=== PATIENT | female | born 1940 | race Caucasian/White ===

== ENCOUNTER → 2020-01-22 08:56 | Day surgery (SDC) | payer MEDICARE, OTHER, SELFPAY ==
[2020-01-22] MEDS: denosumab 60 mg SDV SUBCUT (09:40)
[2020-01-22 09:44] VITALS: BP 123/65; PULSE 62; RESP 18; TEMP 37.1; O2SAT 100
== END ==
PROVIDERS: Family Provider Family Medicine; PCP Family Medicine; Visit Provider Family Medicine
DX: M81.0 Age-related osteoporosis without current pathological fracture (principal)
CPT/HCPCS: 96372; J0897

== ENCOUNTER 2020-01-29 12:59 | Outpatient (CLI) | payer MEDICARE, OTHER, SELFPAY ==
--- NOTE | 2020-01-29 13:04 | MM_ITS ---
WS: [id number] Bilateral screening digital mammogram, 01/29/2020 Clinical Data: SCREENING Comparison: 04/22/2018, 03/25/2017, 02/27/2015, 03/15/2013, 01/19/2011, 03/28/2007. Findings: The breast parenchymal pattern shows fibroglandular tissue. No spiculated masses or clustered calcifi cations are seen. There are no secondary signs of carcinoma. MM/[place] [id number] Impression: 1. Negative bilateral mammogram unchanged. 2. Recommend annual screening mammograms. BIRADS: 1-Negative FOLLOW UP: 1 Year Follow-up The CAD toolroom checker was used.
== END 2020-01-29 13:00 | disposition home or self-care (01) ==
LOC: RADSHAW 13:00
PROVIDERS: Family Provider Family Medicine; PCP Family Medicine; Visit Provider Family Medicine
DX: Z12.31 Encounter for screening mammogram for malignant neoplasm of breast (principal)
CPT/HCPCS: 77067

== ENCOUNTER → 2020-07-24 10:23 | Day surgery (SDC) | payer MEDICARE, OTHER, SELFPAY ==
[2020-07-24 10:40] VITALS: BMI 19.5
[2020-07-24 10:43] VITALS: BP 118/62; PULSE 57; RESP 18; TEMP 36.7; O2SAT 98
[2020-07-24 11:17] LABS: Calcium 9.3 mg/dL (8.5-10.5)
[2020-07-24] MEDS: denosumab 60 mg SDV SUBCUT (11:25)
== END ==
PROVIDERS: PCP Family Medicine; Visit Provider Family Medicine
DX: M81.0 Age-related osteoporosis without current pathological fracture (principal)
CPT/HCPCS: 36415; 82310; 96372; J0897

== ENCOUNTER → 2021-01-23 10:21 | Day surgery (SDC) | payer MEDICARE, OTHER, SELFPAY ==
[2021-01-23 10:49] VITALS: BP 115/58; PULSE 55; RESP 18; TEMP 36.8; O2SAT 99; BMI 20.2
[2021-01-23] MEDS: denosumab 60 mg SDV SUBCUT (11:33)
== END ==
PROVIDERS: PCP Family Medicine; Visit Provider Family Medicine
DX: M81.0 Age-related osteoporosis without current pathological fracture (principal)
CPT/HCPCS: 36415; 82310; 96372; J0897

== ENCOUNTER → 2021-07-25 09:55 | Day surgery (SDC) | payer MEDICARE, OTHER, SELFPAY ==
[2021-07-25 10:16] VITALS: BMI 19.5
[2021-07-25 10:23] VITALS: BP 123/57; PULSE 60; RESP 15; TEMP 37.1; O2SAT 100
[2021-07-25 11:17] LABS: Calcium 8.5 mg/dL (8.5-10.5)
[2021-07-25] MEDS: denosumab 60 mg SDV SUBCUT (11:21)
== END ==
PROVIDERS: PCP Family Medicine; Visit Provider Family Medicine
DX: M81.0 Age-related osteoporosis without current pathological fracture (principal)
CPT/HCPCS: 36415; 82310; 96372; J0897

== ENCOUNTER 2022-02-09 09:47 | Outpatient (CLI) | payer MEDICARE, OTHER, SELFPAY ==
--- NOTE | 2022-02-09 10:06 | XR_ITS ---
WS: [id number] DEXA (DUAL ENERGY X-RAY ABSORPTIOMETRY) Bone mineral density was performed using a [employer] machine. HISTORY: AGE RELATED OSTEOPOROSIS W/O CURRENT PATHOLOGICAL FX COMPARISON: 06/15/2019 Lumbar spine BMD (L1-L4): 1.103 g/cm2 T score: -0.6 Z score: 1.9 Total hip BMD: Left: 0.608 g/cm2. T score: -3.2 Z score: -0.6 Right: 0.622 g/cm2. T score: -3.1 Z score: -0.4 10 year probability of a major osteoporotic fracture is 54%. Compared to the prior study from 06/15/2019. Lumbar spine bone mineral density has increased by 6.6%. Bilateral hips bone mineral density has decreased by 2.7%. XR/XR DEXA axial skeleton* [id number] IMPRESSION: OSTEOPOROSIS based upon the WHO classification for females. Significant decreas e in bone mineral density within the hips since the prior study. Bone mineral d ensity within the lumbar spine is probably falsely elevated due to the increasi ng sclerosis in the vertebral bodies.
== END 2022-02-09 09:48 | disposition home or self-care (01) ==
LOC: RAD 09:50
PROVIDERS: PCP Family Medicine; Visit Provider Family Medicine
DX: M81.0 Age-related osteoporosis without current pathological fracture (principal)
CPT/HCPCS: 77080

== ENCOUNTER → 2022-02-12 09:25 | Day surgery (SDC) | payer MEDICARE, OTHER, SELFPAY ==
[2022-02-12 10:05] VITALS: BP 123/52; PULSE 61; RESP 18; TEMP 36.4; O2SAT 99
[2022-02-12 10:30] LABS: Calcium 9.2 mg/dL (8.5-10.5)
[2022-02-12] MEDS: denosumab 60 mg SDV SUBCUT (10:31)
--- NOTE | 2022-02-12 10:36 | PC.NURSE ---
Pt to GI lab for Prolia injection. Calcium level drawn prior to injection and noted at 9.2. Injection given as ordered.
== END ==
PROVIDERS: PCP Family Medicine; Visit Provider Family Medicine
DX: M81.0 Age-related osteoporosis without current pathological fracture (principal)
CPT/HCPCS: 36415; 82310; 96372; J0897

== ENCOUNTER → 2022-03-12 08:58 | Outpatient (BNVA) | payer MEDICARE, OTHER, SELFPAY | PROVIDERS: PCP Family Medicine; Referring Provider Family Medicine; Visit Provider Internal Medicine | DX: M81.0 Age-related osteoporosis without current pathological fracture (principal); E07.9 Disorder of thyroid, unspecified | CPT/HCPCS: 99204 ==

== ENCOUNTER 2022-03-17 11:03 | Outpatient (CLI) | payer MEDICARE, OTHER, SELFPAY ==
--- NOTE | 2022-03-17 11:13 | MM_ITS ---
WS: [email or web address] BILATERAL SCREENING TOMOSYNTHESIS DIGITAL MAMMOGRAM WITH CAD HISTORY: SCREENING COMPARISON: 01/29/2020, 04/22/2018 Bilateral CC and MLO views submitted. Computer aided detection analyzed. Breast composition: There are scattered areas of fibroglandular density. No suspicious masses, microc alcifications or architectural distortion. Benign calcifications in each breast. More extensive vascu lar calcifications in the RIGHT breast. MM/[place] [id number] IMPRESSION: BI-RADS: 2-Benign FOLLOW UP: 1 Year Follow-up
== END 2022-03-17 11:04 | disposition home or self-care (01) ==
LOC: RADSHAW 11:11
PROVIDERS: PCP Family Medicine; Visit Provider Family Medicine
DX: Z12.31 Encounter for screening mammogram for malignant neoplasm of breast (principal)
CPT/HCPCS: 77063; 77067

== ENCOUNTER → 2022-06-01 10:29 | Outpatient (BNVA) | payer MEDICARE, OTHER, SELFPAY | PROVIDERS: PCP Family Medicine; Visit Provider Podiatrist Foot & Ankle Surgery | DX: M72.2 Plantar fascial fibromatosis (principal); M79.671 Pain in right foot; M79.672 Pain in left foot; M21.40 Flat foot [pes planus] (acquired), unspecified foot | CPT/HCPCS: 73630; 99214 ==

== ENCOUNTER → 2022-07-06 09:01 | Outpatient (BNVA) | payer MEDICARE, OTHER, SELFPAY | PROVIDERS: PCP Family Medicine; Visit Provider Podiatrist Foot & Ankle Surgery | DX: M72.2 Plantar fascial fibromatosis (principal); M21.40 Flat foot [pes planus] (acquired), unspecified foot; M76.829 Posterior tibial tendinitis, unspecified leg | CPT/HCPCS: 99213 ==

== ENCOUNTER → 2022-08-21 10:17 | Day surgery (SDC) | payer MEDICARE, OTHER, SELFPAY ==
[2022-08-21 10:55] VITALS: BP 132/62; PULSE 53; RESP 18; TEMP 36.2; O2SAT 98
[2022-08-21] MEDS: denosumab 60 mg SDV SUBCUT (11:06)
== END ==
PROVIDERS: PCP Family Medicine; Visit Provider Family Medicine
DX: M81.0 Age-related osteoporosis without current pathological fracture (principal)
CPT/HCPCS: 36415; 82310; 96372; J0897

== ENCOUNTER → 2023-01-12 10:53 | Day surgery (SDC) | payer MEDICARE, OTHER, SELFPAY ==
[2023-01-12 11:23] VITALS: BP 114/54; PULSE 64; RESP 18; TEMP 36.3; O2SAT 97
[2023-01-12 11:41] LABS: Calcium 9.1 mg/dL (8.5-10.5)
[2023-01-12] MEDS: denosumab 60 mg SDV SUBCUT (11:43)
== END ==
PROVIDERS: PCP Family Medicine; Visit Provider Family Medicine
DX: M81.0 Age-related osteoporosis without current pathological fracture (principal)
CPT/HCPCS: 36415; 82310; 96372; J0897

== ENCOUNTER 2023-03-30 10:02 | Outpatient (CLI) | payer MEDICARE, OTHER, SELFPAY ==
--- NOTE | 2023-03-30 10:39 | MR_ITS ---
WS: [id number] MRI LUMBAR SPINE NONCONTRAST TECHNIQUE: Sagittal T1, T2 and STIR imaging. Axial T1 and T2 imaging. 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 Slight anterolisthesis L4 on L5 and L5 on S1. Disc space narrowing throughout the lumbar spine. Small shallow central protrusions in the lower thoracic spine worse at T9-T10 and T11-T 12. L1-L2: Mild annular bulging. Mild facet arthropathy. Mild LEFT foraminal narrowing. L2-L3: Mild disc bulging in combination with facet arthropathy ligamentum flavum hypertrophy results in moderate central canal stenosis with impingement on the LEFT subarticular recess. Moderate facet a rthropathy. Impingement on the traversing LEFT L3 nerve root. Moderate RIGHT greater than LEFT forami nal narrowing. Advanced facet arthropathy. L3-L4: Slight anterolisthesis. Severe central canal stenosis due to disc bulging with facet arthropat hy ligamentum flavum hypertrophy. Impingement on the traversing LEFT greater than RIGHT L4 nerve root s. Moderate RIGHT greater than LEFT bony foraminal narrowing. L4-L5: Slight anterolisthesis. Severe central canal stenosis. Disc bulging with facet arthropathy lig amentum flavum hypertrophy. Severe LEFT foraminal narrowing. L5-S1: Mild disc bulging with osteophytic ridging. Impingement traversing RIGHT greater than LEFT S1 nerve roots. Mild central canal stenosis. Moderate to severe RIGHT foraminal narrowing. Moderate face t arthropathy. Visualized pelvic bony structures: Normal. Paravertebral soft tissues: Normal. Small renal cysts. MR/MR lumbar spine wo con* [id number] IMPRESSION: 1. Mild lumbar curve. No acute compression. 2. Severe central canal stenosis L3-L4 and L4-L5 progressed compared to previo us 3. Moderate central canal stenosis L2-L3 with impingement on the LEFT subartic ular recess progressed compared to previous. 4. Moderate to severe bony foraminal narrowing worse at RIGHT L3-L4, LEFT L4-L 5, and RIGHT L5-S1. 5. Advanced facet arthropathy L2-L4.
== END 2023-03-30 10:03 | disposition home or self-care (01) ==
PROVIDERS: PCP Family Medicine; Visit Provider Family Medicine
DX: M48.061 Spinal stenosis, lumbar region without neurogenic claudication (principal); M47.816 Spondylosis without myelopathy or radiculopathy, lumbar region
CPT/HCPCS: 72148

== ENCOUNTER 2023-08-05 13:51 | Oncology outpatient (recurring) (ONCR) | payer MEDICARE, OTHER, SELFPAY ==
[2023-08-05 14:50] LABS: Calcium 9.4 mg/dL (8.5-10.5)
[2023-08-05] MEDS: denosumab 60 mg SDV SUBCUT (15:22)
== END 2023-08-14 23:59 | disposition home or self-care (01) ==
PROVIDERS: PCP Family Medicine; Visit Provider Family Medicine
DX: M81.0 Age-related osteoporosis without current pathological fracture (principal); Z53.9 Procedure and treatment not carried out, unspecified reason
CPT/HCPCS: 36415; 82310; 96372; J0897

== ENCOUNTER 2023-08-25 10:37 | Outpatient (CLI) | payer MEDICARE, OTHER, SELFPAY ==
--- NOTE | 2023-08-25 10:42 | MM_ITS ---
WS: [email or web address] BILATERAL SCREENING DIGITAL TOMOSYNTHESIS MAMMOGRAM WITH CAD HISTORY: SCREENING COMPARISON: 03/17/2022 and 01/29/2020 Bilateral CC and MLO views with tomosynthesis and synthetic mammography submitted. Computer aided det ection analyzed. Breast composition: There are scattered areas of fibroglandular density. No suspicious masses, microc alcifications or architectural distortion. Dense arterial calcifications within each breast. No mass or distortion. IMPRESSION: MM/[place] [id number] BI-RADS: 2-Benign FOLLOW UP: 1 Year Follow-up
== END 2023-08-25 10:38 | disposition home or self-care (01) ==
PROVIDERS: PCP Family Medicine; Visit Provider Family Medicine
DX: Z12.31 Encounter for screening mammogram for malignant neoplasm of breast (principal)
CPT/HCPCS: 77063; 77067

== ENCOUNTER 2024-02-03 12:42 | Oncology outpatient (recurring) (ONCR) | payer MEDICARE, OTHER, SELFPAY ==
[2024-02-03] MEDS: denosumab 60 mg SDV SUBCUT (13:32)
[2024-02-03 13:40] VITALS: BP 106/65; PULSE 69; RESP 16; TEMP 36.7; O2SAT 97
== END 2024-02-13 23:59 | disposition home or self-care (01) ==
PROVIDERS: PCP Family Medicine; Visit Provider Family Medicine
DX: M81.0 Age-related osteoporosis without current pathological fracture (principal)
CPT/HCPCS: 96377; J0897

== ENCOUNTER → 2024-03-08 13:34 | Outpatient (BNVA) | payer MEDICARE, OTHER, SELFPAY | PROVIDERS: PCP Family Medicine; Visit Provider Dermatology | DX: L40.0 Psoriasis vulgaris (principal); L82.1 Other seborrheic keratosis; L57.0 Actinic keratosis; L81.4 Other melanin hyperpigmentation; L57.8 Other skin changes due to chronic exposure to nonionizing radiation | CPT/HCPCS: 11900; 17000; 99204 ==

== ENCOUNTER 2024-05-12 15:10 | Outpatient (CLI) | payer MEDICARE, OTHER, SELFPAY ==
--- NOTE | 2024-05-12 15:15 | XR_ITS ---
WS: [email or web address] DEXA (DUAL ENERGY X-RAY ABSORPTIOMETRY) Bone mineral density was performed using a [employer] machine. HISTORY: POSTMENOPAUSAL COMPARISON: 02/09/2022 Lumbar spine BMD (L2-L4): 1.069 T score: -1.1 Z score: 1.6 Total hip BMD: Left: 0.621 g/cm2. T score: -3.1 Z score: -0.3 Right: 0.644 g/cm2. T score: -2.9 Z score: -0.1 10 year probability of a major osteoporotic fracture is 40.2%. Compared to the prior study from 02/09/2022. Lumbar spine bone mineral density has decreased by 13.9%. Bilateral hips bone mineral density has increased by 2.9%. XR/XR DEXA axial skeleton* [id number] IMPRESSION: OSTEOPOROSIS based upon the WHO classification for females. Significant decrease in bone mineral density within the lumbar spine since the prior study. Significant increase in bone mineral density within the hips since the prior st seguny.
== END 2024-05-12 15:11 | disposition home or self-care (01) ==
LOC: RAD 15:10
PROVIDERS: PCP Family Medicine; Visit Provider Family Medicine
DX: Z78.0 Asymptomatic menopausal state (principal); M81.0 Age-related osteoporosis without current pathological fracture
CPT/HCPCS: 77080

== ENCOUNTER → 2024-05-22 13:29 | Outpatient (BNVA) | payer MEDICARE, OTHER, SELFPAY | PROVIDERS: PCP Family Medicine; Visit Provider Physician Assistant | DX: M19.042 Primary osteoarthritis, left hand | CPT/HCPCS: 20600; 73130; 99213; J3301; J3490 ==

== ENCOUNTER → 2024-07-27 12:48 | Outpatient (BNVA) | payer MEDICARE, OTHER, SELFPAY | PROVIDERS: PCP Family Medicine; Visit Provider Dermatology | DX: L40.0 Psoriasis vulgaris (principal) | CPT/HCPCS: 11900; 99214 ==

== ENCOUNTER 2024-08-01 14:38 | Oncology outpatient (recurring) (ONCR) | payer MEDICARE, OTHER, SELFPAY ==
[2024-08-01] MEDS: denosumab 60 mg SDV SUBCUT (14:58)
[2024-08-01 15:01] VITALS: BP 110/66; PULSE 68; RESP 16; TEMP 36.7; O2SAT 94
== END 2024-08-14 23:59 | disposition home or self-care (01) ==
LOC: ONCMED 14:39
PROVIDERS: PCP Family Medicine; Visit Provider Family Medicine
DX: Z79.899 Other long term (current) drug therapy (principal); M81.0 Age-related osteoporosis without current pathological fracture
CPT/HCPCS: 96372; J0897

== ENCOUNTER → 2024-09-28 14:08 | Outpatient (BNVA) | payer MEDICARE, OTHER, SELFPAY | PROVIDERS: PCP Family Medicine; Visit Provider Dermatology | DX: L40.0 Psoriasis vulgaris (principal) | CPT/HCPCS: 11900; 99214 ==

== ENCOUNTER → 2024-12-01 08:03 | Outpatient (BNVA) | payer MEDICARE, OTHER, SELFPAY | PROVIDERS: PCP Family Medicine; Visit Provider Nurse Practitioner Family | DX: L40.0 Psoriasis vulgaris (principal); L72.0 Epidermal cyst; L81.4 Other melanin hyperpigmentation; L82.0 Inflamed seborrheic keratosis; L57.0 Actinic keratosis | CPT/HCPCS: 11900; 17000; 17110; 99214 ==

== ENCOUNTER 2024-12-07 09:37 | Outpatient (CLI) | payer MEDICARE, OTHER, SELFPAY ==
--- NOTE | 2024-12-07 09:40 | MM_ITS ---
WS: [email or web address] BILATERAL SCREENING DIGITAL TOMOSYNTHESIS MAMMOGRAM WITH CAD HISTORY: SCREENING COMPARISON: 08/25/2023, 03/17/2022 Bilateral CC and MLO views with tomosynthesis and synthetic mammography submitted. Computer aided det ection analyzed. Breast composition: There are scattered areas of fibroglandular density. No suspicious masses, microc alcifications or architectural distortion. Dense arterial calcifications. There are a few additional benign calcifications within each breast. MM/MM [facility] tomosynthesis [id number] IMPRESSION: BI-RADS: 2 - Benign. FOLLOW UP: 1 Year Follow-up
== END 2024-12-07 09:38 | disposition home or self-care (01) ==
LOC: MOBLMAM 09:38
PROVIDERS: PCP Family Medicine; Visit Provider Family Medicine
DX: Z12.31 Encounter for screening mammogram for malignant neoplasm of breast (principal); R92.323 Mammographic fibroglandular density, bilateral breasts; R92.1 Mammographic calcification found on diagnostic imaging of breast
CPT/HCPCS: 77063; 77067

== ENCOUNTER 2024-12-14 10:28 | Outpatient (CLI) | payer MEDICARE, OTHER, SELFPAY | END 2024-12-14 10:29 | disposition home or self-care (01) | LOC: SOT 10:29 | PROVIDERS: PCP Family Medicine; Visit Provider Student in an Organized Health Care Education/Training Program | DX: Z46.89 Encounter for fitting and adjustment of other specified devices (principal); M19.042 Primary osteoarthritis, left hand | CPT/HCPCS: 97760; L3925 ==

== ENCOUNTER 2025-01-29 12:43 | Oncology outpatient (recurring) (ONCR) | payer MEDICARE, OTHER, SELFPAY ==
[2025-01-29 12:59] VITALS: BP 122/67; PULSE 75; RESP 18; TEMP 36.5; O2SAT 94
[2025-01-29] MEDS: denosumab 60 mg SDV SUBCUT (13:01)
== END 2025-02-12 23:59 | disposition home or self-care (01) ==
LOC: ONCMED 12:43
PROVIDERS: PCP Family Medicine; Visit Provider Family Medicine
DX: M81.0 Age-related osteoporosis without current pathological fracture (principal); Z79.899 Other long term (current) drug therapy
CPT/HCPCS: 96372; J0897

== ENCOUNTER → 2025-03-29 12:56 | Outpatient (BNVA) | payer MEDICARE, OTHER, SELFPAY | PROVIDERS: PCP Family Medicine; Visit Provider Nurse Practitioner Family | DX: L40.0 Psoriasis vulgaris (principal); L29.89 Other pruritus | CPT/HCPCS: 11900; 99214 ==

== ENCOUNTER 2025-05-14 11:24 | Outpatient (CLI) | payer MEDICARE, OTHER, SELFPAY ==
--- NOTE | 2025-05-14 11:35 | XR_ITS ---
WS: [id number] XR hip LT 2-3V wo/w pel* [id number] REASON FOR EXAM: LEFT HIP PAIN, CONTUSION OF LEFT BUTTOCK FINDINGS: No fracture or focal bone lesion. Mild narrowing of the joint space with mild subchondral sclerosis and osteophytosis of the acetabulum. Mild osteophytosis of the femoral head. Pubic rami intact. XR/XR hip LT 2-3V wo/w pel* [id number] IMPRESSION: No acute abnormality. Mild osteoarthritis of the left hip.
== END 2025-05-14 11:25 | disposition home or self-care (01) ==
PROVIDERS: PCP Family Medicine; Visit Provider Nurse Practitioner Family
DX: S30.0XXA Contusion of lower back and pelvis, initial encounter (principal); X58.XXXA Exposure to other specified factors, initial encounter; M16.12 Unilateral primary osteoarthritis, left hip
CPT/HCPCS: 73502

== ENCOUNTER 2025-08-09 13:09 | Oncology outpatient (recurring) (ONCR) | payer MEDICARE, OTHER, SELFPAY ==
[2025-08-09] MEDS: denosumab 60 mg SDV (Infusion Clinic Only) SUBCUT (13:46)
== END 2025-08-14 23:59 | disposition home or self-care (01) ==
LOC: ONCMED 13:10
PROVIDERS: PCP Family Medicine; Visit Provider Family Medicine
DX: M81.0 Age-related osteoporosis without current pathological fracture (principal); Z79.899 Other long term (current) drug therapy
CPT/HCPCS: 96372; J0897

== ENCOUNTER → 2025-09-27 12:53 | Outpatient (BNVA) | payer MEDICARE, OTHER, SELFPAY | PROVIDERS: PCP Family Medicine; Visit Provider Nurse Practitioner Family | DX: L40.0 Psoriasis vulgaris (principal) | CPT/HCPCS: 99213 ==